=== PATIENT | female | born 2000 | race Hispanic/Latino ===

== ENCOUNTER → 2019-08-06 | Outpatient (CLI) | payer BC, MEDICARE ==
--- NOTE | 2019-08-06 13:34 | Diagnostic Imaging Report ---
EXAM: US LIVER DATE: 08/06/2019 12:49 PM INDICATION: Abnormal liver enzymes COMPARISON: None FINDINGS: The visualized pancreas is unremarkable. The liver is normal in size measuring 14.7 cm. Hepatic echogenicity is increased suggesting fatty infiltration. No focal hepatic abnormality is identified. The main portal vein is patent with antegrade flow and diameter of 0.8 cm, within normal limits. The gallbladder is unremarkable. There is no evidence for cholelithiasis, gallbladder wall thickening, or pericholecystic fluid. There is no intra or extra hepatic biliary ductal dilatation. The common bile duct measures 5 mm. Sonographic Aguilar's sign is negative. The right kidney is normal in size measuring 10.0 cm in length with normal cortical thickness/echogenicity. There is no evidence for solid renal mass, hydronephrosis, or shadowing calculi within the right kidney. The visualized portions the IVC and aorta are within normal limits. There is no ascites visualized within the right upper quadrant. IMPRESSION: Sonographic findings suggestive of hepatic steatosis. Otherwise unremarkable right upper quadrant ultrasound examination. Signed by: Dr. Dewayne Diaz MD on 08/06/2019 1:30 PM
== END ==
LOC: US 12:29
PROVIDERS: ATTEND Family Medicine
DX: R74.8 Abnormal levels of other serum enzymes (principal)
CPT/HCPCS: 76705